=== PATIENT | male | born 1990 | race Caucasian/White ===

== ENCOUNTER 2019-10-16 05:30 | Emergency (ER) | payer BC, SELFPAY ==
[2019-10-16 05:39] VITALS: BP 166/97; PULSE 104; RESP 16; TEMP 37; O2SAT 98; BMI 22.4
--- NOTE | 2019-10-16 05:42 | ECG_ITS ---
APPROVED REPORT Exam: Resting ECG HR:86 bpm ECG Measurements Heart Rate 86 AXES SD 166 P 68 QRSd 118 QRS 73 QT 372 T 48 QTc 445 <Conclusion> Normal sinus rhythm Nonspecific intraventricular conduction delay Borderline ECG Electronically signed by : Roly Willis, 10/16/2019 14:14:55
--- NOTE | 2019-10-16 05:47 | XR_ITS ---
PROCEDURE: XR CHEST 2V CLINICAL HISTORY: left arm pain COMPARISON: No exams were available for comparison FINDINGS: The cardiomediastinal silhouette and pulmonary vascularity are within normal limits. The lungs are clear without infiltrates, suspicious nodules, or pleural effusions. No acute bony abnormalities. IMPRESSION: No acute findings. Dictated by: Hal South MD 10/16/2019 08:29 Electronically signed by Hal South MD in [place] 10/16/2019 08:29
[2019-10-16 05:54] LABS: Basophils # 0.1 K/mm3 (0-0.2); Basophils % 0.9 % (0.1-2.0); Eosinophils # 0.3 K/mm3 (0.0-0.4); Eosinophils % 4.4 % (0.1-12.0); Hematocrit 42.6 % (42.0-52.0); Hemoglobin 14.5 g/dL (14.1-18.0); Lymphocytes # 3.2 K/mm3 (0.7-4.5); Lymphocytes % 46.1 % (10-50); Mean Corpuscular Hemoglobin 30.1 pg (27.0-31.2); Mean Corpuscular Volume 88.5 fl (80-94); Mean Platelet Volume 7.7 fl (7.4-10.4); Monocytes # 0.3 K/mm3 (0.1-1.0); Monocytes % 4.6 % (1.7-9.3); Platelet Count 289 K/mm3 (142-424); Red Blood Count 4.82 M/mm3 (4.60-6.20); Red Cell Distribution Width 13.2 % (11.5-17.5); White Blood Count 6.9 K/mm3 (4.8-10.8)
[2019-10-16 06:00] LABS: Alanine Aminotransferase 27 U/L (12-78); Albumin Level 5.5 g/dl (3.5-5.0); Albumin/Globulin Ratio 1.7 (1.1-1.8); Alkaline Phosphatase 76 U/L (38-126); Anion Gap 11.1 mEq/L (5-15); Aspartate Amino Transferase 52 U/L (17-59); Bilirubin,Total 0.5 mg/dl (0.2-1.3); Blood Urea Nitrogen 15 mg/dl (9-20); Calcium 11.1 mg/dl (8.4-10.2); Carbon Dioxide 29 mmol/L (22.0-30.0); Chloride 101 mmol/L (98-107); Creatinine Clearance Estimated 120 mL/min (50-200); Estimated Glomerular Filt Rate 87 ml/min (>60); GFR (African American) 105 ML/MIN (>60); Globulin 3.3 g/dL (1.3-3.2); Glucose 107 mg/dl (74-100); Potassium 3.1 mmoL/L (3.5-5.1); Sodium 138 mmol/L (136-145); Total Protein,Serum 8.8 g/dl (6.3-8.2)
[2019-10-16 06:05] LABS: C-Reactive Protein 0.5 mg/L (0-4)
[2019-10-16 06:15] LABS: Troponin I < 0.01 ng/ml (0.00-0.034)
--- NOTE | 2019-10-16 06:22 | HMH.EDEXTP ---
ED Disposition Clinical Impression: Tingling of left upper extremity, Elevated BP without diagnosis of hypertension Disposition: Home, Self-Care Condition on Discharge: Good Instructions: DI for Numbness/tingling Additional Instructions: monitor bp and record and call pcp today for follow up Prescriptions: lisinopriL [Lisinopril 5mg Tablet] 5 mg PO DAILY #14 tab Transmission Status: Pending to [facility] Referrals: Provider,Referral, [Primary Care Provider] - - Critical Care Critical Care Time: No Attestation: On 10/16/19, the high probability of a clinically significant, sudden or life threatening deterioration of the following system(s) required my full and direct attention, intervention and personal management. The time I documented below is in addition to time spent performing reported procedures but includes the following listed in this critical care notation. Medical Decision Making - Medical Records Medical records reviewed: Yes: I reviewed the patient's medical records. - Yasir Inquiry Pt receiving controlled substance: No Vital Signs: 10/16/19 05:39 Temperature 98.6 F Temperature Source Oral Pulse Rate [Right] 104 H Respiratory Rate 16 Blood Pressure [Right Arm] 166/97 H Blood Pressure Mean [Right Arm] 120 Blood Pressure Source [Right Arm] Automatic Cuff Blood Pressure Position [Right Arm] Sitting 02 Sat by Pulse Oximetry 98 Oxygen Delivery Method Room Air - Lab Data Lab results reviewed: Yes: I reviewed the patient's lab results. Lab Results 10/16/19 05:45: WBC 6.9, RBC 4.82, Hgb 14.5, Hct 42.6, MCV 88.5, MCH 30.1, MCHC 34.0, RDW 13.2, Plt Count 289, MPV 7.7, Neut % (Auto) 44.0, Lymph % (Auto) 46.1, [place] % (Auto) 4.6, Eos % (Auto) 4.4, Baso % (Auto) 0.9, Neut # (Auto) 3.0, Lymph # (Auto) 3.2, [place] # (Auto) 0.3, Eos # (Auto) 0.3, Baso # (Auto) 0.1 10/16/19 05:45: Sodium 138, Potassium 3.1 L, Chloride 101, Carbon Dioxide 29, Anion Gap 11.1, BUN 15, Creatinine 1.00, Estimated Creat Clear 120, Estimated GFR 87, Est GFR ( Amer) 105, Glucose 107 H, Calcium 11.1 H, Total Bilirubin 0.5, AST 52, ALT 27, Alkaline Phosphatase 76, Troponin I < 0.01, C-Reactive Protein 0.5, Total Protein 8.8 H, Albumin 5.5 H, Globulin 3.3 H, Albumin/Globulin Ratio 1.7 Result diagrams: 10/16/19 05:45 10/16/19 05:45 Orders (Tests/Meds): ED MEDICATIONS Generic Name Dose Route Start Last Admin Trade Name Freq PRN Reason Stop Dose Admin Sodium Chloride 1,000 mls @ 999 mls/hr 10/16/19 06:00 10/16/19 05:55 Sod Chlor 0.9% 1000ml Bag IV 10/16/19 07:00 999 mls/hr .Q1H1M TIMOTHY Administration Discontinued Medications Generic Name Dose Route Start Last Admin Trade Name Freq PRN Reason Stop Dose Admin Ketorolac Tromethamine 30 mg 10/16/19 05:47 10/16/19 05:54 Toradol 30mg/Ml Vial IV 10/16/19 05:48 30 mg ONCE ONE Administration Methylprednisolone Sodium Succinate 125 mg 10/16/19 05:47 10/16/19 05:54 Solu-Medrol 125mg/2ml Vial IV 10/16/19 05:48 125 mg ONCE ONE Administration ORDERS Category Date Time Status XR chest 2V Stat Exams 10/16/19 05:47 Taken Complete Blood Count Auto Diff Stat Lab 10/16/19 05:45 Results Erythrocyte Sedimentation Rate Stat Lab 10/16/19 05:45 Results Troponin I Q3H Lab 10/16/19 09:00 Ordered Troponin I Q3H Lab 10/16/19 12:00 Ordered - Radiology Data #1 Image(s): Chest Image Reviewed: Yes I reviewed the patient's radiology image Preliminary Findings: Normal/NAD - ECG Data Tracing #1 Normal Sinus Rhythm: Yes Ischemic changes: non-specific ST-T wave changes - JANNET Score for Non-Stemi Age of Patient: 30-39 years old Heart Rate: 90-109 bpm Systolic Blood Pressure: 160-199 mmHg Serum Creatinine: 0.80-1.19 mg/dl CHF [place] Class: I-No CHF Other Risk Factors: None Non-Stemi Risk Score: 40 Extremity Problem HPI - General Chief complaint: Extremity Problem,Nontraumatic Stated complaint: High BP;
[2019-10-16 06:24] LABS: Erythrocyte Sedimentation Rate 6 mm/hr (0-15)
[2019-10-16 06:38] VITALS: BP 156/97; PULSE 85; RESP 14; O2SAT 98
[2019-10-16 06:49] VITALS: BP 167/93; PULSE 90; RESP 14; TEMP 37; O2SAT 97
== END 2019-10-16 06:51 | disposition home or self-care (01) ==
PROVIDERS: Emergency Provider Emergency Medicine
DX: R20.2 Paresthesia of skin (principal); I10 Essential (primary) hypertension
CPT/HCPCS: 71046; 80053; 84484; 85025; 85651; 86140; 93005; 96365; 96375; 99283

== ENCOUNTER 2019-10-18 15:26 | Emergency (ER) | payer BC, SELFPAY ==
--- NOTE | 2019-10-18 15:23 | ECG_ITS ---
APPROVED REPORT Exam: Resting ECG HR:74 bpm ECG Measurements Heart Rate 74 AXES [place] 154 P 59 QRSd 116 QRS 40 QT 378 T 48 QTc 419 <Conclusion> Normal sinus rhythm Normal ECG Electronically signed by : Roly Willis, 10/19/2019 21:39:04
[2019-10-18 15:27] VITALS: BMI 22.4
--- NOTE | 2019-10-18 15:30 | XR_ITS ---
PROCEDURE: XR CHEST 2V CLINICAL HISTORY: dizziness COMPARISON: XR CHEST 2V from 10/16/2019 FINDINGS: The cardiomediastinal silhouette and pulmonary vascularity are within normal limits. The lungs are clear without infiltrates, suspicious nodules, or pleural effusions. No acute bony abnormalities. IMPRESSION: No acute findings. Dictated by: Hal South MD 10/18/2019 16:29 Electronically signed by Hal South MD in [place] 10/18/2019 16:29
[2019-10-18 15:46] VITALS: BP 184/87; PULSE 77; RESP 18; TEMP 36.7; O2SAT 98; BMI 22.4
[2019-10-18 16:06] LABS: Basophils % 0.9 % (0.1-2.0); Eosinophils % 0.5 % (0.1-12.0); Hematocrit 44.1 % (42.0-52.0); Hemoglobin 14.8 g/dL (14.1-18.0); Lymphocytes # 1.3 K/mm3 (0.7-4.5); Lymphocytes % 26.8 % (10-50); Mean Corpuscular HGB Conc 33.6 g/dL (31.8-35.4); Mean Corpuscular Hemoglobin 31.4 pg (27.0-31.2); Mean Corpuscular Volume 93.5 fl (80-94); Mean Platelet Volume 7.9 fl (7.4-10.4); Monocytes # 0.2 K/mm3 (0.1-1.0); Neutrophils # 3.4 K/mm3 (1.8-7.8); Neutrophils % 67.9 % (37.0-80.0); Platelet Count 261 K/mm3 (142-424); Red Blood Count 4.71 M/mm3 (4.60-6.20); Red Cell Distribution Width 13.6 % (11.5-17.5)
[2019-10-18 16:08] LABS: Chloride 96 mmol/L (98-107); Potassium 3.6 mmoL/L (3.5-5.1); Sodium 135 mmol/L (136-145)
[2019-10-18 16:11] LABS: Alanine Aminotransferase 32 U/L (12-78); Alkaline Phosphatase 69 U/L (38-126); Anion Gap 12.6 mEq/L (5-15); Aspartate Amino Transferase 45 U/L (17-59); Bilirubin,Direct 0.2 mg/dl (0.0-0.4); Bilirubin,Indirect 0.2 mg/dL (0.0-0.9); Bilirubin,Total 0.4 mg/dl (0.2-1.3); Bilirubin,Unconjugated 0.2 mg/dL (0.0-1.1); Blood Urea Nitrogen 20 mg/dl (9-20); Calcium 10.7 mg/dl (8.4-10.2); Carbon Dioxide 30 mmol/L (22.0-30.0); Creatinine Clearance Estimated 134 mL/min (50-200); Estimated Glomerular Filt Rate 98 ml/min (>60); GFR (African American) 119 ML/MIN (>60); Glucose 119 mg/dl (74-100); Total Protein,Serum 8.3 g/dl (6.3-8.2)
[2019-10-18 16:30] LABS: Troponin I < 0.01 ng/ml (0.00-0.034)
--- NOTE | 2019-10-18 16:40 | HMH.EDGENADL ---
ED Disposition Clinical Impression: Hypertension, Anxiety about blushing Disposition: Home, Self-Care Condition on Discharge: Good Prescriptions: Metoprolol Succinate [Metoprolol Succinate 25mg Tablet*] 25 mg PO DAILY 30 Days #60 tab Transmission Status: Pending to [facility] Metoprolol Succinate [Metoprolol Succinate 25mg Tablet*] 25 mg PO DAILY 30 Days #60 tab Transmission Status: Pending to [facility] Referrals: Provider,Referral, [Primary Care Provider] - - Critical Care Critical Care Time: No Attestation: On 10/18/19, the high probability of a clinically significant, sudden or life threatening deterioration of the following system(s) required my full and direct attention, intervention and personal management. The time I documented below is in addition to time spent performing reported procedures but includes the following listed in this critical care notation. Medical Decision Making - Medical Records Medical records reviewed: Yes: I reviewed the patient's medical records. - Yasir Inquiry Pt receiving controlled substance: No Vital Signs: 10/18/19 15:46 Temperature 98.1 F Temperature Source Oral Pulse Rate [Left Radial] 77 Respiratory Rate 18 Blood Pressure [Right Arm] 184/87 H Blood Pressure Mean [Right Arm] 119 Blood Pressure Position [Right Arm] Sitting 02 Sat by Pulse Oximetry 98 Oxygen Delivery Method Room Air - Lab Data Lab results reviewed: Yes: I reviewed the patient's lab results. Lab Results 10/18/19 15:25: WBC 5.0 D, RBC 4.71, Hgb 14.8, Hct 44.1, MCV 93.5, MCH 31.4 H, MCHC 33.6, RDW 13.6, Plt Count 261, MPV 7.9, Neut % (Auto) 67.9, Lymph % (Auto) 26.8, [place] % (Auto) 4.0, Eos % (Auto) 0.5, Baso % (Auto) 0.9, Neut # (Auto) 3.4, Lymph # (Auto) 1.3, [place] # (Auto) 0.2, Eos # (Auto) 0.0, Baso # (Auto) 0.0 10/18/19 15:25: Sodium 135 L, Potassium 3.6, Chloride 96 L, Carbon Dioxide 30, Anion Gap 12.6, BUN 20 D, Creatinine 0.90, Estimated Creat Clear 134, Estimated GFR 98, Est GFR ( Amer) 119, Glucose 119 H, Calcium 10.7 H, Total Bilirubin 0.4, Direct Bilirubin 0.2, Conjugated Bilirubin 0.0, Indirect Bilirubin 0.2, Unconjugated Bilirubin 0.2, AST 45, ALT 32, Alkaline Phosphatase 69, Troponin I < 0.01, Total Protein 8.3 H, Albumin 5.0 Result diagrams: 10/18/19 15:25 10/18/19 15:25 Orders (Tests/Meds): ED MEDICATIONS Generic Name Dose Route Start Last Admin Trade Name Freq PRN Reason Stop Dose Admin Sodium Chloride 10 ml 10/18/19 15:39 Sodium Chloride 0.9% 10ml Vial IV 11/17/19 15:38 NEEDED PRN to Dilute Lorazepam inj Discontinued Medications Generic Name Dose Route Start Last Admin Trade Name Freq PRN Reason Stop Dose Admin Lorazepam 1 mg 10/18/19 15:39 10/18/19 15:40 Ativan 2mg/Ml Vial IV 10/18/19 15:40 1 mg ONCE ONE Administration ORDERS Category Date Time Status Troponin I Q3H Lab 10/18/19 18:30 Ordered Troponin I Q3H Lab 10/18/19 21:30 Ordered - ECG Data Tracing #1 I reviewed this ECG and interpreted as documented below: Normal Sinus Rhythm: Yes General Adult HPI - General Chief complaint: Dizziness Stated complaint: dizziness Time Seen by Provider: 10/18/19 16:00 Mode of Arrival: Ambulatory Source of Information: Patient Limitations: No Limitations Description of Symptoms (Recalled from ER Triage Doc. by RN): to ed per pvt car with c/o dizziness, shaking, felt like I was going to pass out, my hands started cramping up states episode lasted approx 5-10 mins. pt denies any chest pain, sob, nausea, vomiting, extremity weakness - History of Present Illness HPI narrative: He 1-year-old male presents with a panic attack. Patient states that he feels his heart pounding blood pressure is elevated. He was recently started on some blood pressure medication on Wednesday however he has not started taking it yet. Today he felt overwhelming sense of impending doom and he also felt palpitat
[2019-10-18 16:56] VITALS: BP 165/95; PULSE 87; RESP 16; TEMP 36.6; O2SAT 98
[2019-10-19 00:30] LABS: POC Glucose,Bedside 103 (70-110)
== END 2019-10-18 16:57 | disposition home or self-care (01) ==
PROVIDERS: Emergency Provider Family Medicine
DX: F41.0 Panic disorder [episodic paroxysmal anxiety] (principal); I10 Essential (primary) hypertension
CPT/HCPCS: 71046; 80048; 80076; 82962; 84484; 85025; 93005; 96374; 99283

== ENCOUNTER 2020-08-05 21:34 | Emergency (ER) | payer BC, SELFPAY ==
--- NOTE | 2020-08-05 21:41 | ECG_ITS ---
APPROVED REPORT Exam: Resting ECG HR:60 bpm ECG Measurements Heart Rate 60 AXES [place] 172 P 41 QRSd 120 QRS 22 QT 378 T 46 QTc 378 Conclusion Normal sinus rhythm with sinus arrhythmia Nonspecific intraventricular conduction delay Borderline ECG Electronically signed by : Roly Willis, 08/06/2020 06:32:39
[2020-08-05 21:43] VITALS: BP 167/109; PULSE 71; RESP 16; TEMP 37.1; O2SAT 98; BMI 22.5
--- NOTE | 2020-08-05 21:56 | XR_ITS ---
PROCEDURE: XR CHEST 2V CLINICAL HISTORY: Chest Pain COMPARISON: CR XR CHEST 2V from 10/16/2019 CR XR CHEST 2V from 10/18/2019 FINDINGS: The cardiomediastinal silhouette and pulmonary vascularity are within normal limits. The lungs are clear without infiltrates, suspicious nodules, or pleural effusions. No acute bony abnormalities. IMPRESSION: No acute findings. Dictated by: Hal South MD 08/06/2020 05:42 Hal South MD in [place] 08/06/2020 05:42
[2020-08-05 22:04] LABS: Basophils # 0.1 K/mm3 (0-0.2); Basophils % 0.9 % (0.1-2.0); Eosinophils # 0.3 K/mm3 (0.0-0.4); Eosinophils % 4.3 % (0.1-12.0); Hematocrit 43.7 % (42.0-52.0); Hemoglobin 14.5 g/dL (14.1-18.0); Lymphocytes # 1.9 K/mm3 (0.7-4.5); Lymphocytes % 29.8 % (10-50); Mean Corpuscular HGB Conc 33.1 g/dL (31.8-35.4); Mean Corpuscular Hemoglobin 30.8 pg (27.0-31.2); Mean Platelet Volume 8.1 fl (7.4-10.4); Monocytes # 0.3 K/mm3 (0.1-1.0); Monocytes % 4.4 % (1.7-9.3); Neutrophils # 3.8 K/mm3 (1.8-7.8); Neutrophils % 60.6 % (37.0-80.0); Platelet Count 267 K/mm3 (142-424); Red Blood Count 4.69 M/mm3 (4.60-6.20); Red Cell Distribution Width 12.5 % (11.5-17.5); White Blood Count 6.3 K/mm3 (4.8-10.8)
[2020-08-05 22:06] LABS: Chloride 103 mmol/L (98-107); Potassium 3.7 mmoL/L (3.5-5.1); Sodium 142 mmol/L (136-145)
[2020-08-05 22:08] LABS: Bilirubin,Unconjugated 0.3 mg/dL (0.0-1.1); Blood Urea Nitrogen 24 mg/dl (9-20); Creatinine Clearance Estimated 111 mL/min (50-200); Estimated Glomerular Filt Rate 78 ml/min (>60); GFR (African American) 94 ML/MIN (>60)
[2020-08-05 22:09] LABS: Alanine Aminotransferase 22 U/L (12-78); Albumin Level 5.1 g/dl (3.5-5.0); Alkaline Phosphatase 71 U/L (38-126); Anion Gap 11.7 mEq/L (5-15); Aspartate Amino Transferase 40 U/L (17-59); Bilirubin,Direct 0.1 mg/dl (0.0-0.4); Bilirubin,Indirect 0.3 mg/dL (0.0-0.9); Bilirubin,Total 0.4 mg/dl (0.2-1.3); Calcium 11.8 mg/dl (8.4-10.2); Carbon Dioxide 31 mmol/L (22.0-30.0); Glucose 138 mg/dl (74-100); Total Protein,Serum 8.7 g/dl (6.3-8.2)
[2020-08-05 22:15] LABS: C-Reactive Protein 0.4 mg/L (0-4)
[2020-08-05 22:22] LABS: Troponin I < 0.01 ng/ml (0.00-0.034)
[2020-08-05 22:29] LABS: Erythrocyte Sedimentation Rate 12 mm/hr (0-15)
--- NOTE | 2020-08-05 22:41 | HMH.EDCP ---
ED Disposition Clinical Impression: Atypical chest pain HTN (hypertension) Qualifiers: Hypertension type: essential hypertension Qualified Code(s): I10 - Essential (primary) hypertension Disposition: Home, Self-Care Condition on Discharge: Good Instructions: DI for Atypical Chest Pain Additional Instructions: see card for follow up and restart lisinopril Referrals: PCP,No [Primary Care Provider] - Lee Carey MD [Staff Physician] - - Critical Care Critical Care Time: No Attestation: On 08/05/20, the high probability of a clinically significant, sudden or life threatening deterioration of the following system(s) required my full and direct attention, intervention and personal management. The time I documented below is in addition to time spent performing reported procedures but includes the following listed in this critical care notation. Medical Decision Making - Medical Records Medical records reviewed: Yes: I reviewed the patient's medical records. - Yasir Inquiry Pt receiving controlled substance: No Vital Signs: 08/05/20 21:43 08/05/20 23:05 08/05/20 23:42 Temperature 98.7 F Temperature Source Oral Pulse Rate [Right] 71 60 70 Respiratory Rate 16 16 16 Blood Pressure [Right Arm] 167/109 H 154/93 H 159/94 H Blood Pressure Mean [Right Arm] 128 113 115 Blood Pressure Source [Right Arm] Automatic Cuff Automatic Cuff Automatic Cuff Blood Pressure Position [Right Arm] Sitting Sitting Sitting 02 Sat by Pulse Oximetry 98 98 98 Oxygen Delivery Method Room Air Room Air Room Air 08/06/20 00:36 Temperature Temperature Source Pulse Rate [Right] 60 Respiratory Rate 16 Blood Pressure [Right Arm] 173/99 H Blood Pressure Mean [Right Arm] 123 Blood Pressure Source [Right Arm] Automatic Cuff Blood Pressure Position [Right Arm] Sitting 02 Sat by Pulse Oximetry 98 Oxygen Delivery Method Room Air - Lab Data Lab results reviewed: Yes: I reviewed the patient's lab results. Lab Results 08/05/20 21:45: WBC 6.3, RBC 4.69, Hgb 14.5, Hct 43.7, MCV 93.0, MCH 30.8, MCHC 33.1, RDW 12.5, Plt Count 267, MPV 8.1, Neut % (Auto) 60.6, Lymph % (Auto) 29.8, [place] % (Auto) 4.4, Eos % (Auto) 4.3, Baso % (Auto) 0.9, Neut # (Auto) 3.8, Lymph # (Auto) 1.9, [place] # (Auto) 0.3, Eos # (Auto) 0.3, Baso # (Auto) 0.1, ESR 12 08/05/20 21:45: Sodium 142, Potassium 3.7, Chloride 103, Carbon Dioxide 31 H, Anion Gap 11.7, BUN 24 H, Creatinine 1.10, Estimated Creat Clear 111, Estimated GFR 78, Est GFR ( Amer) 94, Glucose 138 H, Calcium 11.8 H, Total Bilirubin 0.4, Direct Bilirubin 0.1, Conjugated Bilirubin 0.0, Indirect Bilirubin 0.3, Unconjugated Bilirubin 0.3, AST 40, ALT 22, Alkaline Phosphatase 71, Troponin I < 0.01, C-Reactive Protein 0.4, Total Protein 8.7 H, Albumin 5.1 H, Procalcitonin < 0.030 08/06/20 00:17: Troponin I < 0.01 Result diagrams: 08/05/20 21:45 08/05/20 21:45 Orders (Tests/Meds): ED MEDICATIONS Generic Name Dose Route Start Last Admin Trade Name Freq PRN Reason Stop Dose Admin Sodium Chloride 1,000 mls @ 999 mls/hr 08/05/20 22:00 08/05/20 22:00 Sod Chlor 0.9% 1000ml Bag IV 08/05/20 23:00 999 mls/hr .Q1H1M TIMOTHY Administration Discontinued Medications Generic Name Dose Route Start Last Admin Trade Name Freq PRN Reason Stop Dose Admin Aspirin 324 mg 08/05/20 21:56 08/05/20 22:00 Aspirin 81mg Chewable Tablet PO 08/05/20 21:57 324 mg ONCE ONE Administration Clonidine HCl 0.1 mg 08/06/20 00:07 08/06/20 00:11 Clonidine 0.1mg Tablet PO 08/06/20 00:08 0.1 mg ONCE ONE Administration ORDERS Category Date Time Status XR chest 2V Stat Exams 08/05/20 21:56 Taken Troponin I Q3H Lab 08/06/20 04:00 Ordered - Radiology Data #1 Image(s): Chest Image Reviewed: Yes I reviewed the patient's radiology image Preliminary Findings: Normal/NAD - ECG Data Tracing #1 Normal Sinus Rhythm: Yes Ischemic changes: non-specific ST-T wave changes Medica
[2020-08-05 23:05] VITALS: BP 154/93; PULSE 60; RESP 16; O2SAT 98
[2020-08-05 23:12] LABS: Procalcitonin < 0.030 ng/mL (0.0-2.0)
[2020-08-05 23:42] VITALS: BP 159/94; PULSE 70; RESP 16; O2SAT 98
[2020-08-06 00:36] VITALS: BP 173/99; PULSE 60; RESP 16; O2SAT 98
[2020-08-06 00:50] LABS: Troponin I < 0.01 ng/ml (0.00-0.034)
[2020-08-06 01:59] VITALS: BP 173/99; PULSE 60; RESP 16; TEMP 37.1; O2SAT 99
== END 2020-08-06 02:02 | disposition home or self-care (01) ==
PROVIDERS: Emergency Provider Emergency Medicine
DX: R07.89 Other chest pain (principal); I10 Essential (primary) hypertension; Z79.899 Other long term (current) drug therapy
CPT/HCPCS: 71046; 80048; 80076; 84145; 84484; 85025; 85651; 86140; 93005; 96365; 99283

== ENCOUNTER → 2020-08-06 14:15 | Outpatient (CLI) | payer BC, SELFPAY | PROVIDERS: Visit Provider Urology | DX: R00.2 Palpitations (principal); R07.9 Chest pain, unspecified; R42 Dizziness and giddiness; R55 Syncope and collapse; I10 Essential (primary) hypertension; R06.83 Snoring; R40.0 Somnolence; R53.83 Other fatigue | CPT/HCPCS: 93270 ==

== ENCOUNTER → 2020-08-19 08:38 | Outpatient (CLI) | payer BC, SELFPAY ==
--- NOTE | 2020-08-19 08:38 | CA_ITS ---
APPROVED REPORT Exam: Exercise Treadmill Technologist: Rukhsana Rehman Ht: 6 ft 3 in Wt: 188 lbs BSA: 2.14 m2 HR: 62 bpm BP: 144/87 mmHg Indications: Chest pain Medical History Medications: Metoprolol Stress Test Details Test: Yash HR Resting HR: 70 bpm Max Heart Rate (APMHR): 188 bpm Max HR Achieved: 188 bpm Target HR (85% APMHR): 159 bpm % of APMHR: 100 Recovery HR: 93 bpm BP Resting BP: 144.0/87.0 mmHg Max BP: 178.0/86.0 mmHg Recovery BP: 145.0/85.0 mmHg ECG Resting ECG: B Clinical Exercise duration: 13:29 min Highest Stage Achieved: Exercise capacity: 14.8 METs Stress ECG Conclusion Yash Protocol completed. Patient exercised 13:29. Test stopped due to shortness of breath. Symptoms: Shortness of breath during peak exercise, resolved in recovery. No chest pain. Arrhythmias/Ectopy: No ectopy. ST-T Changes: Less than 1.[address] depression. Conclusion: Excellent exercise capacity. No ectopy. Less than 1.[address] depression noted.Normal test. Test Summary REST 16:11 0.0 0.0 70 . 144/ 87 . . Stage 1 01:00 10.0 1.7 90 . . . . Stage 1 02:00 10.0 1.7 86 . . . . Stage 1 03:00 10.0 1.7 84 . 122/ 86 . . Stage 2 01:00 12.0 2.5 93 . . . . Stage 2 02:00 12.0 2.5 96 . . . . Stage 2 03:00 12.0 2.5 94 . 150/ 90 . . Stage 3 01:00 14.0 3.4 111 . . . . Stage 3 02:00 14.0 3.4 121 . . . . Stage 3 03:00 14.0 3.4 127 . 158/ 92 . . Stage 4 01:00 16.0 4.2 138 . . . . Stage 4 02:00 16.0 4.2 150 . . . . Stage 4 03:00 16.0 4.2 159 . 170/ 92 . . Stage 5 01:00 18.0 5.0 175 . . . . Stage 5 01:29 18.0 3.2 179 . . . Stop exercise at 13:29 RECOVERY 01:00 0.0 0.0 142 . 178/ 86 . . RECOVERY 02:00 0.0 0.0 109 . 178/ 86 . . RECOVERY 03:00 0.0 0.0 100 . 164/ 82 . . RECOVERY 04:00 0.0 0.0 97 . 145/ 85 . . Electronically signed by : Chucho Rodríguez, 08/19/2020 18:27:22
--- NOTE | 2020-08-19 08:38 | CA_ITS ---
APPROVED REPORT EXAM: Comprehensive 2D, Doppler, and color-flow Echocardiogram Drug Room Clerk: Eunice Goldman RT(R) Ht: 6 ft 3 in Wt: 180lbs BSA: 2.10 BP: 140/87 mmHg Indications: cp, syncope, dizziness, HTN, palpitations, fatigue 2D Dimensions LVOT 2.47 cm (M/F) 1.5-2.5 LVEF (Aguirre's) 41.30 % M: 52 - 72 LV Volume 98.60 mL M: 62 - 150 LV Volume Index 46.95 mL/m2 M: 34 - 74 M-Mode Dimensions RVDd 3.04 cm (0.9-2.6) LA Diam 2.12 cm (1.9-4.0) LVDd 5.02 cm (3.5-5.7) Ao Diam 3.52 cm (2.0-3.7) LVDs 4.06 cm (3.5-5.7) IVSd 1.23 cm (0.6-1.1) PWd 0.80 cm (0.6-1.1) EF (Teich) 39.20% FS 19.10% EDV (Teich) 119.30 mL ESV (Teich) 72.50 mL LV Diastology E Decel Time 197.00 (160-240 msec) E/A Ratio 1.5 MED E' 11.40 (< 7 cm/sec) E'/MED E' Ratio 4.28 (>14) LAT E' 12.00 (<10 cm/sec) E/LAT E' Ratio 4.07 (>14) Mitral Valve MV E Max Joseph. 49.00 (40-130 cm/s) MV A Velocity 33.00 (40-130 cm/s) E/A Ratio 1.47 MV Decel. Time 197.00 (160-240 ms) MV PHT 58.00 ms Left Ventricle Left atrium is normal size, left ventricle is normal size, there is no concentric left ventricular hypertrophy, visually estimated ejection fraction 55% with no regional wall motion abnormality, diastolic parameters are inconclusive. Right Ventricle Right atrium and right ventricle qualitatively normal size and contractility. Aortic Valve Aortic valve is grossly normal, there is no aortic stenosis or aortic insufficiency. Mitral Valve Mitral valve is grossly normal, there is trace mitral regurgitation. Tricuspid Valve Tricuspid grossly normal, there is trace tricuspid regurgitation. Pulmonic Valve Pulmonic valve is poorly visualized. Great Vessels Aortic root is normal size. Pericardium No significant pericardial effusion noted. Conclusion 1. Normal left ventricular size, preserved left ventricular systolic function, visually estimated ejection fraction 55% with no regional wall motion abnormality, diastolic parameters are inconclusive. 2. Trace mitral and tricuspid regurgitation. 3. No significant pericardial effusion noted. Electronically signed by : Chucho Rodríguez, 08/19/2020 17:44:07
== END ==
PROVIDERS: Visit Provider Urology
DX: R55 Syncope and collapse (principal); I10 Essential (primary) hypertension
CPT/HCPCS: 93017; 93306

== ENCOUNTER → 2020-08-30 11:56 | Outpatient (CLI) | payer BC, SELFPAY | PROVIDERS: Visit Provider Urology | DX: R06.81 Apnea, not elsewhere classified (principal); R06.83 Snoring; R40.0 Somnolence; R53.83 Other fatigue; I10 Essential (primary) hypertension | CPT/HCPCS: G0399 ==

== ENCOUNTER → 2021-06-02 08:21 | Outpatient (CLI) | payer BC, SELFPAY | PROVIDERS: PCP Family Medicine; Visit Provider Nurse Practitioner | DX: U07.1 COVID-19 (principal) | CPT/HCPCS: C9803; U0003; U0005 ==

== ENCOUNTER → 2021-06-27 09:40 | Outpatient (CLI) | payer BC, SELFPAY ==
[2021-06-27 10:54] LABS: Alanine Aminotransferase 46 U/L (12-78); Albumin Level 5.1 g/dl (3.5-5.0); Alkaline Phosphatase 57 U/L (38-126); Aspartate Amino Transferase 49 U/L (17-59); Bilirubin,Indirect 0.4 mg/dL (0.0-0.9); Bilirubin,Total 0.4 mg/dl (0.2-1.3); Bilirubin,Unconjugated 0.3 mg/dL (0.0-1.1); Chol/HDL Ratio 3.3 (1-3.5); Cholesterol 208 mg/dl (140-200); HDL Cholesterol 63 mg/dl (40-60); Total Protein,Serum 7.8 g/dl (6.3-8.2); Triglycerides 260 mg/dl (30-150); VLDL Cholesterol 52 mg/dL (0-40)
[2021-06-27 11:05] LABS: Direct LDL Cholesterol 100.68 mg/dL (100-129)
== END ==
PROVIDERS: Visit Provider Internal Medicine Cardiovascular Disease
DX: I10 Essential (primary) hypertension (principal)
CPT/HCPCS: 36415; 80061; 80076

== ENCOUNTER → 2023-05-12 15:02 | Outpatient (CLI) | payer BC, SELFPAY ==
[2023-05-12 16:05] LABS: Basophils % 0.5 % (0.1-2.0); Eosinophils # 0.1 K/mm3 (0.0-0.4); Eosinophils % 1.4 % (0.1-12.0); Hematocrit 41.4 % (42.0-52.0); Hemoglobin 14.1 g/dL (14.1-18.0); Lymphocytes # 1.2 K/mm3 (0.7-4.5); Lymphocytes % 27.8 % (10-50); Mean Corpuscular HGB Conc 34.1 g/dL (31.8-35.4); Mean Corpuscular Hemoglobin 31.5 pg (27.0-31.2); Mean Corpuscular Volume 92.3 fl (80-94); Mean Platelet Volume 8.7 fl (7.4-10.4); Monocytes # 0.2 K/mm3 (0.1-1.0); Monocytes % 5.3 % (1.7-9.3); Neutrophils # 2.9 K/mm3 (1.8-7.8); Platelet Count 214 K/mm3 (142-424); Red Blood Count 4.48 M/mm3 (4.60-6.20); Red Cell Distribution Width 13.2 % (11.5-17.5); White Blood Count 4.4 K/mm3 (4.8-10.8)
[2023-05-12 16:13] LABS: Alanine Aminotransferase 20 U/L (12-78); Albumin Level 4.8 g/dl (3.5-5.0); Alkaline Phosphatase 66 U/L (38-126); Anion Gap 8.8 mEq/L (5-15); Aspartate Amino Transferase 30 U/L (17-59); Bilirubin,Direct 0.1 mg/dl (0.0-0.4); Bilirubin,Indirect 0.3 mg/dL (0.0-0.9); Bilirubin,Total 0.4 mg/dl (0.2-1.3); Bilirubin,Unconjugated 0.3 mg/dL (0.0-1.1); Blood Urea Nitrogen 21 mg/dl (9-20); Calcium 10.4 mg/dl (8.4-10.2); Carbon Dioxide 33 mmol/L (22.0-30.0); Chloride 100 mmol/L (98-107); Chol/HDL Ratio 3.5 (1-3.5); Cholesterol 222 mg/dl (140-200); Estimated Glomerular Filt Rate 85 ml/min (>60); GFR (African American) 103 ML/MIN (>60); Glucose 86 mg/dl (74-100); HDL Cholesterol 64 mg/dl (40-60); Magnesium 1.9 mg/dl (1.6-2.3); Potassium 3.8 mmoL/L (3.5-5.1); Sodium 138 mmol/L (136-145); Total Protein,Serum 7.4 g/dl (6.3-8.2); Triglycerides 80 mg/dl (30-150); VLDL Cholesterol 16 mg/dL (0-40)
[2023-05-12 16:24] LABS: Direct LDL Cholesterol 120.57 mg/dL (100-129)
[2023-05-12 16:44] LABS: Prostate Specific Ag Screen 0.6 ng/ml (0.0-4.0); Thyroid Stimulating Hormone 0.66 uIU/mL (0.465-4.68)
== END ==
LOC: LAB 15:04
PROVIDERS: Nurse Practitioner Family; PCP Family Medicine; Visit Provider Internal Medicine
DX: R00.2 Palpitations (principal); R06.00 Dyspnea, unspecified; E83.52 Hypercalcemia; I10 Essential (primary) hypertension; Z12.5 Encounter for screening for malignant neoplasm of prostate; Z79.899 Other long term (current) drug therapy
CPT/HCPCS: 36415; 80048; 80061; 80076; 83735; 84439; 84443; 85025; G0103

== ENCOUNTER 2023-06-04 09:37 | Outpatient (CLI) | payer BC, SELFPAY ==
--- NOTE | 2023-06-04 09:38 | CT_ITS ---
FINAL REPORT TECHNIQUE: Pre-and postcontrast images of the abdomen were performed by computed tomography. Extensive 3-D reconstruction images were performed. A CTA was performed. This study was performed with techniques to keep radiation doses as low as reasonably achievable (ALARA). Individualized dose reduction techniques using automated exposure control or adjustment of mA and/or kV according to the patient''s size were employed. CLINICAL HISTORY: dypsnea/palpitations/abnl ecg/hypercalcemia FINDINGS: ABDOMEN/PELVIS: The lung bases are clear. Precontrast images demonstrate no evidence of nephrolithiasis. No adrenal masses are identified. The liver, spleen and pancreas are unremarkable. The appendix is normal. CTA: The abdominal aorta is proper caliber. The SMA, celiac axis, and ISELA are patent. There is no significant stenosis or calcification. The renal arteries are patent bilaterally. The iliacs are unremarkable. IMPRESSION: No evidence of renal vascular hypertension or significant renal artery stenosis. Reviewed, Interpreted and Dictated by Joe Bowie III, MD Transcribed by Xi Arevalo Authenticated and [facility]
[2023-06-04] MEDS: IOPAMIDOL-370 (76%);100ML BOTTLE 75 ML IV (10:01)
--- NOTE | 2023-06-04 10:09 | CA_ITS ---
APPROVED REPORT EXAM: Comprehensive 2D, Doppler, and color-flow Echocardiogram Funeral Home Attendant: Louisa Christianson RVT Ht: 6 ft 3 in Wt: 187lbs BSA: 2.13 BP: 155/89 mmHg Indications: PALPS,EX SMOKER,EDWARDS 2D Dimensions Left Atrium 2.67 cm M: 3.0 - 4.0 LA Volume 46.50 mL RVID Base (AP4) 2.65 cm (M/F) 2.5-4.1 LA Volume Index 21.83 mL/m2 (M/F) 16-34 LVOT 2.49 cm (M/F) 1.5-2.5 EF AP4 49.10 % GL Strain -15.2 % M-Mode Dimensions RVDd 2.24 cm (0.9-2.6) LVDd 5.13 cm (3.5-5.7) Ao Diam 3.81 cm (2.0-3.7) LVDs 3.50 cm (3.5-5.7) IVSd 1.82 cm (0.6-1.1) PWd 0.42 cm (0.6-1.1) EF (Teich) 59.40% FS 31.80% EDV (Teich) 125.50 mL TAPSE 1.94 (<1.7) ESV (Teich) 50.90 mL LV Diastology E Decel Time 183 (160-240 msec) E/A Ratio 1.1 MED E' 10.0 (>= 7 cm/sec) E'/MED E' Ratio 5.61 (<= 14) LAT E' 14.3 (>= 10 cm/sec) E/LAT E' Ratio 3.92 (<= 14) Aortic Valve LVOT Max 85.0 (70-110 cm/s) CARMEN Index 1.57 cm2/m2 LVOT VTI 15.59 cm AoV Peak Joseph. 120.0 (50-130 cm/s) AO Peak GR. 4.40 mmHg AO Mean GR. 2.70 (<5 mmHg) AO VTI 22.7 (18-25 cm) CARMEN (VTI) 3.35 (2.5-4.5 cm2) Mitral Valve MV E Max Joseph. 56.0 (40-130 cm/s) MV A Velocity 52.0 (40-130 cm/s) E/A Ratio 1.08 MV Decel. Time 183 (160-240 ms) Tricuspid Valve TR P. Velocity 233.00 cm/s RAP Estimate 10.00 mmHg RVSP 31.80 mmHg Left Ventricle The left ventricle is normal size. The left ventricular systolic function is low-normal. There is normal left ventricular wall thickness. There is low-normal LV segmental wall motion. The left ventricular diastolic function is normal. LVEF is 50%. Right Ventricle The right ventricle is normal size. The right ventricular systolic function is normal. Atria The left atrium size is normal. The right atrium size is normal. There is no Doppler evidence of interatrial shunt. Aortic Valve The aortic valve is normal in structure. There is no aortic valvular stenosis. No aortic regurgitation is present. Mitral Valve The mitral valve is normal in structure. No evidence of mitral valve stenosis. There is no mitral valve regurgitation noted. Tricuspid Valve The tricuspid valve leaflets are thin and pliable. Trace tricuspid regurgitation. There is insufficient TR jet to estimate RVSP. Pulmonic Valve The pulmonary valve is normal in structure. Trace pulmonic regurgitation. Great Vessels The aortic root is normal in size. The ascending aorta is not well visualized. IVC is normal in size and collapses >50% with inspiration. Pericardium There is no pericardial effusion. Other Information Study Quality: Adequate Conclusion Low-normal LV systolic function (LVEF 50%). No significant valvular stenosis or regurgitation. Further evaluation of the low-normal LVEF is recommended with cardiac MRI (cardiomyopathy protocol) to accurately assess the LVEF and rule out underlying cardiomyopathy. Electronically signed by : Azucena Philip MD 06/05/2023 17:36:01
== END 2023-06-04 23:59 ==
LOC: RAD 09:38
PROVIDERS: PCP Family Medicine; Visit Provider Nurse Practitioner Family
DX: R06.09 Other forms of dyspnea (principal); R00.2 Palpitations; I10 Essential (primary) hypertension; E83.52 Hypercalcemia; Z87.891 Personal history of nicotine dependence
CPT/HCPCS: 74174; 93306; Q9967

== ENCOUNTER 2023-07-07 12:57 | Outpatient (CLI) | payer BC, SELFPAY ==
--- NOTE | 2023-07-07 12:57 | MR_ITS ---
APPROVED REPORT Pin Maker: CLINICAL INDICATION Cardiomyopathy evaluation. Borderline hypokinesis (LVEF 50%) on TTE. TECHNIQUE Image Acquisition: Cardiac magnetic resonance (CMR) was performed on Siemens Espree MRI 1.5T scanner. Software platform sequences were performed using the Siemens BooRah MR B19 platform. A set of three-plane, low-resolution, large egrth-sf-brzd localizers were initially acquired. Then axial, coronal, sagittal TrueFISP, as well as axial HASTE images, were obtained. These were followed by gated TrueFISP breathold cinematic sequences obtained in the short axis with 8 mm slices and 2 mm gaps, 2-chamber (vertical long axis), 3-chamber, 4-chamber (horizontal long axis). A bolus of contrast was injected intravenously with first-pass sequences obtained in the short axis and four-chamber planes. After approximately 10 minutes, a TI ethnic origins teacher sequence was performed to determine the optimal TI time. Using the optimized TI time, delayed contrast enhancement segmented inversion???recovery TurboFLASH sequences were obtained in the short axis, 2-chamber, 3-chamber, and 4-chamber projections. 2D-velocity phase mapping was performed. Functional parameters were calculated by offline analysis on an independent workstation ([employer], [employer]). Contrast: ProHance??? (Gadoteridol) FINDINGS MORPHOLOGY AND FUNCTION Left ventricle: The left ventricle is normal in size. The indexed left ventricular end-diastolic volume (LVEDVi) is 98 ml/m2 (reference range 57-105 ml/m2 in males, 56-96 ml/m2 in females). Low-normal left ventricular systolic function is present. There is normal left ventricular wall thickness. There are no regional wall motion abnormalities noted. LVEF is calculated at 51.6% (reference range 57-77%). Right ventricle: The right ventricle is normal in size. The indexed right ventricular end-diastolic volume (RVEDVi) is 84 ml/m2 (reference range 61-121 ml/m2 in males, 48-112 ml/m2 in females). There is mild reduction in right ventricular systolic function. RVEF is calculated at 45.5% (reference range 52-72% in males, 51-71% in females). Atria: The left atrium is normal in size. The maximum indexed left atrial volume is 28 ml/m2 (reference range 26-52 ml/m2 in males, 27-53 ml/m2 in females). The right atrium is normal in size. The maximum indexed right atrial volume is 29 ml/m2 (reference range 18-90 ml/m2). Aorta: The diameter of the aortic annulus is normal, measuring 30 mm (coronal view reference range 21-30 mm in males, 19-27 mm in females). The diameter of the aortic sinus is normal, measuring 35 mm (coronal view reference range 25-42 mm in males, 24-36 mm in females). The diameter of the sinotubular junction is normal, measuring 31 mm (coronal view reference range 18-32 mm in males, 18-28 mm in females). The diameters of the ascending and descending thoracic aorta are normal. Main pulmonary artery: The main pulmonary artery diameter is normal. Pericardium: The pericardial thickness is normal. The pericardial thickness measures 2.2 cm (normal < 4.0 cm). There is no pericardial effusion. VALVES The valvular morphologies in the visualized sequences appear normal. There is no significant valvular stenosis or regurgitation of the mitral, aortic, tricuspid, or pulmonic valve noted visually. Systolic anterior motion of the mitral valve is not visualized. Ratio of pulmonary to systemic flow, Qp:Qs ratio = 1.15 (normal < or = 1.2), demonstrating no evidence of hemodynamically significant shunt. TISSUE CHARACTERIZATION Resting Perfusion: Normal myocardial blood flow at rest. No evidence of resting hypoperfusion. Myocardial Fibrosis and/or edema: Normal gadolinium kinetics are present. No evidence of late gadolinium enhancement is noted, consistent with absence of myocardial scarring, infarction, or necrosis. T2-weighted imaging demonstrates no evidence of myocardial edema or inflammation. OTHER No other significant findings are noted. However, this exam is focused on the cardiac structure and function. IMPRESSION Normal LV size with low-normal LV systolic function. LVEDVi= 98 ml/m2 and LVEF= 51.6%. Normal RV size with mild reduction in RV systolic function. RVEDVi= 84 ml/m2 and RVEF= 45.5%. No atrial enlargement. No CMR evidence of myocardial scarring, infarction, or necrosis. No evidence of myocardial edema or inflammation. Perfusion analysis demonstrates normal blood flow at rest with no evidence of resting hypoperfusion. Ratio of pulmonary to systemic flow, Qp:Qs ratio = 1.15 (normal < or = 1.2), demonstrating no evidence of hemodynamically significant shunt. This CMR demonstrates low-normal LV systolic function with no evidence of myocardial scarring or infarction or fibrosis. There is also mild reduction in RV systolic function, which does not meet criteria for arrhythmogenic RV cardioymopathy (ARVC). COMPARISON None CRITICAL RESULT None COMMUNICATION Per this written report The findings of this cardiac MR were reviewed, reported, and signed by Jerson Philip MD ([employer]). Conclusion Electronically signed by : Azucena Philip MD 07/11/2023 19:02:21
[2023-07-07] MEDS: SODIUM CHLORIDE 0.9% 10ML SYR (RAD ONLY) 10 ML IV (14:27)
[2023-07-07] MEDS: GADOTERIDOL INJ 17ML SYRINGE 18 ML IV (14:28)
[2023-07-07] MEDS: SODIUM CHLORIDE 0.9% 50ML BAG 25 ML IV (14:28)
== END 2023-07-07 23:59 ==
LOC: RAD 12:57
PROVIDERS: PCP Family Medicine; Visit Provider Internal Medicine
DX: I42.8 Other cardiomyopathies (principal)
CPT/HCPCS: 75561; A9576